=== PATIENT | male | born 1985 | race Asian ===

== ENCOUNTER 2018-07-25 09:00 | Outpatient (CLI) | payer BC ==
[2018-07-25 10:12] LABS: Prothrombin Time 13.2 SEC (12.0-14.7)
[2018-07-25 11:32] LABS: Iron 120 ug/dL (65-175); Iron Binding Capacity, Total 265 mcg/dL (261-462)
[2018-07-25 11:52] LABS: Hep B Surf AB Non-Reactive (NonReactive); Hep C IgG Ab Non-Reactive (NonReactive); Hep C Index 0.11 S/CO (0-0.79)
--- NOTE | 2018-07-25 12:26 | ULT ---
HEPATIC SONOGRAM WITH DUPLEX EVALUATION: Date: 07/25/18 HISTORY: Hepatitis B. FINDINGS: Gallbladder has a normal appearance. Common duct is 0.2 cm. Liver is heterogeneous without focal mass or intrahepatic biliary dilatation. No free fluid. Spleen is 9.6 cm. Good color and spectral Doppler flow within the hepatic and splenic arteries. Portal venous flow is t owards the liver. Hepatic venous flow is towards the IVC. IMPRESSION: Normal hepatic sonogram. No sonographic evidence of portal venous hypertension. POS: [facility]
[2018-07-25 14:51] LABS: Hep B Core Total Ab Reactive (NonReactive); Hep B Surf Ag Reactive S/CO (NonReactive)
[2018-07-25 14:52] LABS: HBSAg Index 6067.76 S/CO (0-0.99)
[2018-07-25 14:53] LABS: Hep B Core Total Index 11.11 S/CO (0-0.79)
[2018-07-26 04:19] LABS: Hepatitis A IgM ABS Negative (Negative); Hepatitis A Total ABS Positive (Negative)
== END 2018-07-25 09:01 | disposition home or self-care (01) ==
LOC: SCSULT 09:00
PROVIDERS: ATTEND Internal Medicine Gastroenterology
DX: B18.1 Chronic viral hepatitis B without delta-agent (principal)
CPT/HCPCS: 36415; 76705; 82105; 83540; 83550; 85610; 86704; 86706; 86707; 86709; 86803; 87340; 87350

== ENCOUNTER 2019-03-11 08:56 | Outpatient (CLI) | payer BC ==
--- NOTE | 2019-03-11 09:37 | ULT ---
Exam: Hepatic Doppler HISTORY: Hepatitis B. COMPARISON: 07/25/2018 TECHNIQUE: Grayscale, color flow, Doppler imaging and spectral wave form analysis performed of the li loree FINDINGS: Suboptimal evaluation of the pancreas Visualized aorta has a normal caliber. Suboptimal evaluation the IVC Heterogeneous hepatic echotexture which may be due to hepatic steatosis or hepatocellular disease. Castillo bsequent evaluation for hepatic masses and intrahepatic biliary dilatation is limited. Right hepatic lobe measures 15.7 cm. Common bile measures 0.5 cm No sonographic evidence of cholelithiasis, gallbladder wall thickening or pericholecystic fluid. Spleen has a normal echotexture, measuring 9.6 cm in maximum dimension Hepatic Doppler: There is a patency and appropriate directional flow in the left portal vein, right p ortal vein, main portal vein, middle hepatic vein, right hepatic vein, left hepatic vein and hepatic artery. The splenic vein and artery are also patent with appropriate. IMPRESSION: 1. Normal hepatic Doppler. 2. Normal hepatic sonogram.
== END 2019-03-11 08:57 | disposition home or self-care (01) ==
LOC: SCSULT 08:56
PROVIDERS: ATTEND Internal Medicine Gastroenterology
DX: B18.1 Chronic viral hepatitis B without delta-agent (principal)
CPT/HCPCS: 76705

== ENCOUNTER 2019-09-23 07:47 | Outpatient (CLI) | payer BC ==
--- NOTE | 2019-09-23 08:20 | ULT ---
US Hepatic Doppler HISTORY: Viral hepatitis COMPARISON: 03/11/2019 study. FINDINGS: Real-time imaging of the liver shows a normal-appearing liver measuring 14.4 cm in length. No masses. The gallbladder is normal in appearance no evidence of stones common duct is in the 5 mm range. Splee n is normal in size at 8 cm. Doppler evaluation with spectral analysis normal flow pattern seen within the liver. IMPRESSION: Unremarkable liver ultrasound.
== END 2019-09-23 07:48 | disposition home or self-care (01) ==
LOC: BICULT 07:47
PROVIDERS: ATTEND Internal Medicine Gastroenterology
DX: B18.1 Chronic viral hepatitis B without delta-agent (principal)
CPT/HCPCS: 76705

== ENCOUNTER 2020-04-05 07:51 | Outpatient (CLI) | payer BC ==
--- NOTE | 2020-04-05 08:31 | ULT ---
Hepatic sonogram with duplex evaluation HISTORY: Hepatitis. Follow-up. COMPARISON: 09/23/2019. FINDINGS: Gallbladder has normal appearance. Common duct is 0.4 cm. Liver is unremarkable without focal mass or intrahepatic biliary dilatation. No free fluid. Spleen measures up to 9.2 cm. Good color and spectral Doppler flow within the hepatic and splenic arteries. Portal venous flow is t owards the liver. Hepatic venous flow is towards the IVC. IMPRESSION : Normal exam. No evidence of portal venous hypertension.
== END 2020-04-05 07:52 | disposition home or self-care (01) ==
LOC: BICULT 07:51
PROVIDERS: ATTEND Internal Medicine Gastroenterology
DX: B18.1 Chronic viral hepatitis B without delta-agent (principal)
CPT/HCPCS: 76705